=== PATIENT | female | born 1960 | race African-American/Black ===

== ENCOUNTER 2016-05-28 05:16 | Day surgery (SDC) | payer MEDICAID ==
[2016-05-23 10:40] LABS: ABSOLUTE EOSINOPHILS # (AUTO) 0.1 10^3/uL (0.0-0.6); ABSOLUTE MONOCYTES (AUTO) 0.7 10^3/uL (0.1-1.4); ABSOLUTE NEUT (AUTO) 4.2 10^3/uL (1.7-8.2); BASOPHILS % (AUTO) 0.7 % (0-2); EOSINOPHILS % (AUTO) 1.5 % (0-6); HEMATOCRIT 40.6 % (36.0-47.0); HGB HCT DIFFERENCE 1.4; MEAN CORPUSCULAR HEMOGLOBIN 35.2 pg (27.0-33.4); MEAN CORPUSCULAR HGB CONC 34.5 g/dL (32.0-36.0); MEAN CORPUSCULAR VOLUME 102 fl (80-97); MONOCYTES % (AUTO) 9.3 % (3-13); RED BLOOD COUNT 3.98 10^6/uL (3.72-5.28); RED CELL DISTRIBUTION WIDTH 13.8 % (11.5-14.0); SEGMENTED NEUTROPHILS % (AUTO) 59.5 % (42-78)
[2016-05-23 10:43] LABS: APPEARANCE,URINE SLIGHTLY-CLOUDY; BILIRUBIN,URINE NEGATIVE (NEGATIVE); GLUCOSE, URINE NEGATIVE (NEGATIVE); KETONES,URINE TRACE mg/dL (NEGATIVE); LEUKOCYTE ESTERASE,URINE MODERATE (NEGATIVE); NITRITE,URINE POSITIVE (NEGATIVE); PROTEIN,URINE NEGATIVE (NEGATIVE); URINE SPECIFIC GRAVITY 1.025
--- NOTE | 2016-05-23 10:55 | EKG REPORT ---
SEVERITY:- NORMAL ECG - SINUS RHYTHM : Confirmed by: Holli Lester 23-May-2016 10:54:24
[2016-05-23 11:05] LABS: ANION GAP 14 (5-19); BLOOD UREA NITROGEN 8 mg/dL (7-20); CALCIUM 9.3 mg/dL (8.4-10.2); CARBON DIOXIDE 22 mmol/L (22-30); CHLORIDE 107 mmol/L (98-107); CREATININE RESULT 0.51 mg/dL (0.52-1.25); GLUCOSE 136 mg/dL (75-110); SODIUM 142.5 mmol/L (137-145)
[~2016-05-28 05:16] MED LIST: CEFAZOLIN 2 GM/D5W RTU 2 GM/50 ML RTUPB IV PRN; LIDOCAINE 0.5% INJ-PF (5 MG/ML) 50 ML SDV IV PRN; RINGERS SOLUTION,LACTATED 1,000 ML IV PRN
[2016-05-28] MEDS ORDERED: ALBUTEROL SULFATE 0.083% NEB 2.5 MG/3 ML AMPUL NEB ONE ×2 (06:48→07:00)
[2016-05-28] MEDS ORDERED: METOCLOPRAMIDE HCL INJ/PF 10 MG/2 ML SDV ONE (07:54)
[2016-05-28] MEDS ORDERED: FAMOTIDINE INJ/PF 20 MG/2 ML SDV IV ONE ×2 (07:54→08:30)
[2016-05-28] MEDS ORDERED: CEFTRIAXONE 2 GM/D5W RTU 2 GM/50 ML RTUPB IV ONE (08:00)
[2016-05-28] MEDS ORDERED: METOCLOPRAMIDE HCL INJ/PF 10 MG/2 ML SDV IV ONE (08:30)
[2016-05-28] MEDS ORDERED: MIDAZOLAM 2 MG/2 ML INJ ONE (09:37)
[2016-05-28] MEDS ORDERED: FENTANYL CITRATE INJ/PF 100 MCG/2 ML AMPUL ONE (09:38)
[2016-05-28] MEDS ORDERED: PROPOFOL INJ 200 MG/20 ML VIAL IV ONE (09:38)
[2016-05-28] MEDS ORDERED: BUPIVACAINE HCL 0.5 % INJ/PF 30 ML SDV ONE (09:46)
[2016-05-28] MEDS ORDERED: LIDOCAINE 1%/EPINEPHRINE INJ 20 ML VIAL ONE ×2 (09:46→10:11)
[2016-05-28] MEDS ORDERED: OXYCODONE-ACETAMINOPHEN 5-325 MG TABLET PO PRN ×2 (10:05)
[2016-05-28] MEDS ORDERED: PROMETHAZINE HCL INJ 25 MG/1 ML VIAL IV PRN ×2 (10:05)
[2016-05-28] MEDS ORDERED: MORPHINE SULFATE 10 MG/ML INJ IV PRN (10:05)
[2016-05-28] MEDS ORDERED: MEPERIDINE HCL/PF INJ 25 MG/1 ML DISP.SYRIN IV PRN (10:05)
[2016-05-28] MEDS ORDERED: DIPHENHYDRAMINE HCL 50 MG/ML VIAL IV PRN (10:05)
[2016-05-28] MEDS ORDERED: FENTANYL CITRATE INJ/PF 100 MCG/2 ML AMPUL IV PRN ×3 (10:05)
--- NOTE | 2016-05-28 10:33 | Operative Report ---
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 Intact medial meniscus. Intact anterior cruciate ligament. Grade 1 chondral malacia lateral compartment. Lateral meniscal tear. Grade 1-2 chondral malacia the patellofemoral compartment OPERATION: Arthroscopic partial lateral meniscectomy SURGEON: MELISSA MORRIS ANESTHESIA: LMAC PROCEDURE: With the patient supine on the operating table left lower extremity is prepped and draped in a sterile fashion. The knee is insufflated with comminution Marcaine, Xylocaine, and epinephrine. Subsequent medial lateral patella portals are graded introduction ER scope and debridements instrumentation. Joint is examined in a systematic fashion findings as above. Using comminution of basket Hernandez, mechanical shaver, left or frequency ablation probe a partial lateral meniscectomy is performed from approximately 12:00 to 5:00 on the face of the dial. This extends back out to the outer third of the meniscus body throughout this arc. The systematic fashion with no new findings. Instrumentation is removed. The portals closed with the nylon. A sterile compressive dressing was applied. Patient's returned to PACU in satisfactory condition.
[2016-05-28] MEDS ORDERED: ONDANSETRON 4 MG TAB.RAPDIS SL PRN (11:00)
[2016-05-28] MEDS ORDERED: OXYCODONE HCL IR 5 MG TABLET PO PRN (11:00)
[2016-05-28] MEDS ORDERED: LIDOCAINE 2% INJ-PF (20 MG/ML) 10 ML AMPUL ONE (11:01)
[2016-05-28 12:57] VITALS: BP 119/73
== END 2016-05-28 12:30 | disposition home or self-care (01) ==
LOC: OROUT 05:16
PROVIDERS: ATTEND Orthopaedic Surgery
PROC: 0SBD4ZZ Excision of Left Knee Joint, Percutaneous Endoscopic Approach (ICD-10-PCS; principal; 2016-05-28 09:45)
DX: S83.262D Peripheral tear of lateral meniscus, current injury, left knee, subsequent encounter (principal); X58.XXXD Exposure to other specified factors, subsequent encounter; M25.562 Pain in left knee; J44.9 Chronic obstructive pulmonary disease, unspecified; I10 Essential (primary) hypertension; E78.5 Hyperlipidemia, unspecified; R73.03 Prediabetes; M10.9 Gout, unspecified; Z87.891 Personal history of nicotine dependence; Z79.899 Other long term (current) drug therapy
CPT/HCPCS: 93005; 36415; 82962; 85025; 81025; 80048; 81001; 71020; 93010; 29881; J2250; J3010; J3490 ×2; J2765; J2704; S0028; J0696; 1400; J0690

== ENCOUNTER → 2016-09-26 | Outpatient (CLI) | payer MEDICAID ==
--- NOTE | 2016-09-26 14:15 | RADIOLOGY REPORT (SQ) ---
EXAM DESCRIPTION: FOOT RIGHT COMPLETE COMPLETED DATE/TIME: 09/26/2016 2:02 pm REASON FOR STUDY: HALLUX RIGIDUS, RIGHT FOOT M20.21 HALLUX RIGIDUS, RIGHT FOOT COMPARISON: None. NUMBER OF VIEWS: Three views. TECHNIQUE: AP, lateral and oblique standing radiographic images acquired of the right foot. LIMITATIONS: None. FINDINGS: MINERALIZATION: Normal. BONES: No acute fracture or dislocation. No worrisome bone lesions. JOINTS: Degenerative joint changes are present at the 1st metatarsal-phalangeal joint. SOFT TISSUES: No soft tissue swelling. No foreign body. OTHER: No other significant finding. IMPRESSION: Degenerative joint disease at the 1st metatarsal-phalangeal joint. TECHNICAL DOCUMENTATION: JOB ID: [id number] [employer]- All Rights Reserved
== END ==
LOC: RAD 13:22
PROVIDERS: ATTEND Podiatrist Foot & Ankle Surgery
DX: M20.21 Hallux rigidus, right foot (principal)

== ENCOUNTER → 2016-10-13 | Outpatient (CLI) | payer MEDICAID ==
[2016-10-15 00:36] LABS: HEPATITIS C QUANTITATION HCV Not Detected IU/mL (.)
== END ==
LOC: LAB 09:27
PROVIDERS: ATTEND Internal Medicine
DX: B18.2 Chronic viral hepatitis C (principal)
CPT/HCPCS: 36415; 87522

== ENCOUNTER → 2016-10-29 | Outpatient (CLI) | payer MEDICAID | LOC: SP 09:20 | PROVIDERS: ATTEND Podiatrist Foot & Ankle Surgery | DX: I73.9 Peripheral vascular disease, unspecified (principal) | CPT/HCPCS: 93925 ==

== ENCOUNTER → 2017-12-08 | Outpatient (CLI) | payer MEDICAID ==
--- NOTE | 2017-12-08 13:17 | RADIOLOGY REPORT (SQ) ---
EXAM DESCRIPTION: FOOT RIGHT COMPLETE COMPLETED DATE/TIME: 12/08/2017 12:36 pm REASON FOR STUDY: HALLUX LIMITUS M20.21 HALLUX RIGIDUS, RIGHT FOOT COMPARISON: None. NUMBER OF VIEWS: Three views. TECHNIQUE: AP, lateral and oblique radiographic images acquired of the right foot. Weightbearing images were acquired LIMITATIONS: None. FINDINGS: MINERALIZATION: Normal. BONES: No acute fracture or dislocation. No worrisome bone lesions. JOINTS: No effusions. Osteoarthritis with joint space narrowing and bony spurring at the 1st metatar sophalangeal joint without bone formation SOFT TISSUES: No soft tissue swelling. No foreign body. OTHER: There is flattening of the plantar arch. Moderate-sized plantar and dorsal calcaneal spurs. IMPRESSION: NEGATIVE STUDY OF THE RIGHT FOOT. NO RADIOGRAPHIC EVIDENCE OF ACUTE INJURY. TECHNICAL DOCUMENTATION: JOB ID: [id number] [email or web address]- All Rights Reserved Reading location - IP/workstation name: [email or web address]
== END ==
LOC: OD 12:18
PROVIDERS: ATTEND Podiatrist Foot & Ankle Surgery
DX: M20.21 Hallux rigidus, right foot (principal)

== ENCOUNTER → 2018-01-13 | Outpatient (CLI) | payer MEDICAID ==
--- NOTE | 2018-01-13 09:06 | WOMENS IMAGING REPORT ---
EXAM DESCRIPTION: 3D SCREENING MAMMO BILAT COMPLETED DATE/TIME: 01/13/2018 8:46 am REASON FOR STUDY: SCREENING MAMMO Z12.31 ENCNTR SCREEN MAMMOGRAM FOR MALIGNANT NEOPLASM OF ROSEANNE COMPARISON: Multiple since 2012 TECHNIQUE: Standard craniocaudal and mediolateral oblique views of each breast recorded using digita l acquisition and breast tomosynthesis. LIMITATIONS: None. FINDINGS: No masses, calcifications or architectural distortion. No areas of suspicion. Read with the assistance of CAD. .[facility] - R2 Cenova Version 1.3 .[facility] - R2 Cenova Version 1.3 .[facility] - R2 Cenova Version 2.4 .[facility] [place] R2 Cenova Version 2.4 .[facility] - R2 Steam Plant Operator Version 9.2 IMPRESSION: NORMAL MAMMOGRAM. BIRADS 1. BREAST DENSITY: c. The breasts are heterogeneously dense, which may obscure small masses. BIRAD: 1 NEGATIVE RECOMMENDATION: ROUTINE SCREENING Please continue bilateral screening mammography/tomosynthesis in December 2018 COMMENT: The patient has been notified of the results by letter per SA requirements. Additional no tification policies are in place for contacting patient with suspicious or incomplete findings. Quality ID #225: The [employer] recommends an annual screening mammogram for women aged 40 years or over. This facility utilizes a reminder system to ensure that all patients receive reminder letters, and/or direct phone calls for appointments. This includes reminders for routine scr eening mammograms, diagnostic mammograms, or other Breast Imaging Interventions when appropriate. Th is patient will be placed in the appropriate reminder system. The [employer] (ACR) has developed recommendations for screening MRI of the breast s in certain patient populations, to be used in conjunction with mammography. Breast MRI surveillanc e may be appropriate for women with more than 20% lifetime risk of developing breast cancer as deter mined by genetic testing, significant family history of the disease, or history of mantle radiation f or Hodgkins Disease. ACR Practice Guidelines 2008. DBT Technology DBT is a type of tomographic mammography. With conventional mammography, overlapping breast tissue ma y make lesions difficult to detect, even with good compression. DBT uses an x-ray tube that rotates a round the breast, taking images at different angles. These images are then combined to create thin sl ices of the breast that the radiologist can view as a 3D reconstruction. The Flynn unit can perform full-field digital mammograms (2D imaging); or DBT (3D imaging); or both, in a combination mode that quickly performs both the mammogram and the tomosynthesis scan while the breast is still compressed. PQRS 6045F: Fluoroscopic imaging is not utilized for breast tomosynthesis. TECHNICAL DOCUMENTATION: FINDING NUMBER: (1) ASSESSMENT: (1) JOB ID: [id number] [employer]- All Rights Reserved Reading location - IP/workstation name: [email or web address]
== END ==
LOC: WI 08:12
PROVIDERS: ATTEND Internal Medicine
DX: Z12.31 Encounter for screening mammogram for malignant neoplasm of breast (principal)
CPT/HCPCS: 77063; 77067

== ENCOUNTER → 2019-01-18 | Outpatient (CLI) | payer MEDICARE, MEDICAID ==
--- NOTE | 2019-01-18 13:10 | WOMENS IMAGING REPORT ---
EXAM DESCRIPTION: 3D SCREENING MAMMO BILAT COMPLETED DATE/TIME: 01/18/2019 11:06 am REASON FOR STUDY: Z12.31 SCREENING MAMMO Z12.31 ENCNTR SCREEN MAMMOGRAM FOR MALIGNANT NEOPLASM OF B RE COMPARISON: [id number] EXAM PARAMETERS: Views: Standard craniocaudal and mediolateral oblique views of each breast recorded using digital acquisition and breast tomosynthesis. Read with the assistance of CAD. .[facility] - [employer] Development Manager Version 9.2 LIMITATIONS: None. FINDINGS: No suspicious masses, suspicious calcifications or architectural distortion. No areas of c oncern. IMPRESSION: NEGATIVE MAMMOGRAM. BIRADS 1. BREAST DENSITY: b. There are scattered areas of fibroglandular density. BIRAD: ASSESSMENT: 1 NEGATIVE RECOMMENDATION: ROUTINE SCREENING COMMENT: The patient has been notified of the results by letter per MQSA requirements. Additional no tification policies are in place for contacting patient with suspicious or incomplete findings. Quality ID #225: The [employer] recommends an annual screening mammogram for women aged 40 years or over. This facility utilizes a reminder system to ensure that all patients receive reminder letters, and/or direct phone calls for appointments. This includes reminders for routine scr eening mammograms, diagnostic mammograms, or other Breast Imaging Interventions when appropriate. Th is patient will be placed in the appropriate reminder system. TECHNICAL DOCUMENTATION: FINDING NUMBER: (1) ASSESSMENT: (1) JOB ID: [id number] [employer] - how [employer] [place]- All Rights Reserved Reading location - IP/workstation name: [email or web address]
== END ==
LOC: WI 10:20
PROVIDERS: ATTEND Internal Medicine
DX: Z12.31 Encounter for screening mammogram for malignant neoplasm of breast (principal)
CPT/HCPCS: 77063; 77067

== ENCOUNTER 2019-04-13 04:10 | Inpatient (IN) | payer MEDICARE, MEDICAID ==
--- NOTE | 2019-04-13 04:30 | ER Document Report ---
ED Fall - General Stated Complaint: FALL/HIP PAIN Time Seen by Provider: 04/13/19 04:23 Notes: Patient is a 58-year-old female that comes by EMS for chief complaint of a witnessed fall. She states she was ambulating over to her neighbor's house tonight and she stepped in a pothole, this caused her to twist her leg and fall. She has reported pain in her left knee and left hip. She denies fall injury, head injury, or any other locations of pain. Per EMS the witness stated that she did not have any other injuries other than to her right hip and knee. Patient admits to drinking "2 coolers" of beer tonight. Patient is not reportedly on a blood thinner. Patient does report that she has had left hip replacement more than once. TRAVEL OUTSIDE OF THE [place] IN LAST 30 DAYS: No - Related data Allergies/Adverse Reactions: No Known Allergies Allergy (Verified 05/22/16 13:04) Past Medical History - General Information source: Patient - Social History Smoking Status: Former Smoker Frequency of alcohol use: Social Drug Abuse: None Lives with: Alone Family History: Reviewed & Not Pertinent - Past Medical History Cardiac Medical History: Reports: Hx Hypertension Denies: Hx Coronary Artery Disease, Hx Heart Attack Pulmonary Medical History: Reports: Hx Asthma Denies: Hx Bronchitis, Hx COPD, Hx Pneumonia Neurological Medical History: Denies: Hx Cerebrovascular Accident, Hx Seizures Musculoskeletal Medical History: Reports Hx Arthritis Traumatic Medical History: Reports: Hx Fractures - LEFT hip 1987 Past Surgical History: Reports: Hx Appendectomy, Hx Tonsillectomy - Immunizations Hx Diphtheria, Pertussis, Tetanus Vaccination: Yes Hx Pneumococcal Vaccination: 12/22/12 Review of Systems - Review of Systems Constitutional: No symptoms reported EENT: No symptoms reported Cardiovascular: No symptoms reported Respiratory: No symptoms reported Gastrointestinal: No symptoms reported Genitourinary: No symptoms reported Female Genitourinary: No symptoms reported Musculoskeletal: See HPI Skin: No symptoms reported Hematologic/Lymphatic: No symptoms reported Neurological/Psychological: No symptoms reported Physical Exam - Vital signs Vitals: Resp Pulse Ox 19 96 04/13/19 04:23 04/13/19 04:23 - Notes Notes: GENERAL: Patient alert, cooperative, occasionally slurring words, appears mildly intoxicated. Intermittently appears to be in pain HEAD: Normocephalic, atraumatic. EYES: Pupils equal, round, and reactive to light. Extraocular movements intact. ENT: Oral mucosa moist, tongue midline. Oropharynx unremarkable. Airway patent. Nares patent, no nasal septal hematoma, TM's intact. NECK: Full range of motion. Supple. Trachea midline. LUNGS: Clear to auscultation bilaterally, no wheezes, rales, or rhonchi. No respiratory distress. No signs of trauma HEART: Regular rate and rhythm. No murmur ABDOMEN: Soft, non-tender. Non-distended. Bowel sounds present in all 4 quadrants. No signs of trauma GENITOURINARY: Deferred EXTREMITIES: Patient is very tender starting at the superior aspect of the left knee extending up towards the left hip. No open wounds, no overt deformity but there does appear to be some swelling. Patient occasionally bends the knee. Normal distal neurovascular exam, strong dorsalis pedis pulse. Unremarkable extremities otherwise. BACK: no cervical, thoracic, lumbar midline tenderness. No saddle anesthesia, normal distal neurovascular exam. Moves all extremities in full range of motion. NEUROLOGICAL: Alert and oriented x3. Occasionally mild slurred speech. Cranial nerves II through XII grossly intact. PSYCH: Intermittently friendly and agitated SKIN: Warm, dry, normal turgor. No rashes or lesions noted. Course - Re-evaluation Re-evalutation: Patient denies any other injuries other than her left leg. There does not appear to be any other injured areas, no signs of head injury or reported head injury by the witness per EMS. Vital signs unremarkable. X-ray of the left knee, femur, hip shows normal hip but obvious large mildly displaced spiral fracture of the mid to distal left femur. Patient has strong distal pulses and sensation is normal. No other signs of trauma. Patient was discussed with Dr. Rivera. Called and spoke with Dr. Purvis, he will accept patient to his service. Patient will not be placed in traction but she will be placed in a modified long-leg posterior splint. Preop has been initiated, Tong placed. CBC, chemistry nonspecific with mildly elevated LFTs. Alcohol level is greater than 230. - Vital Signs Vital signs: Temp Pulse Resp BP Pulse Ox 97.6 F 18 127/78 H 92 04/13/19 06:10 04/13/19 05:51 04/13/19 05:27 04/13/19 05:51 - Laboratory Result Diagrams: 04/13/19 05:30 04/13/19 05:30 Laboratory results interpreted by me: 04/13/19 04/13/19 05:30 05:30 MCV 101 H MCH 34.1 H Plt Count 145 L Chloride 109 H Creatinine 0.50 L Glucose 141 H AST 81 H ALT 65 H - EKG Interpretation by Me Additional EKG results interpreted by me: EKG shows sinus rhythm at a rate of 76, QTC of 446, normal axis. No T wave inversions or ST segment changes in consecutive leads. Procedures - Immobilization left leg Pre-Proc Neuro Vasc Exam: Normal Immobilizer type: Long leg posterior - modified to the side instead of the posterior Performed by: PCT Post-Proc Neuro Vasc Exam: Normal Alignment checked and good: Yes Discharge - Discharge Clinical Impression: Left femoral shaft fracture Qualifiers: Encounter type: initial encounter Fracture type: closed Fracture morphology: spiral Fracture alignment: displaced Qualified Code(s): S72.342A - Displaced spiral fracture of shaft of left femur, initial encounter for closed fracture Fall Qualifiers: Encounter type: initial encounter Qualified Code(s): W19.XXXA - Unspecified fall, initial encounter Alcohol intoxication Qualifiers: Complication of substance-induced condition: with unspecified complication Qualified Code(s): F10.929 - Alcohol use, unspecified with intoxication, un specified Condition: Stable Disposition: ADMITTED INPATIENT Admitting Provider: Dr. Purvis Unit Admitted: Surgical Floor
[2019-04-13] MEDS ORDERED: MORPHINE SULFATE 10 MG/ML INJ IV ONE (05:20)
[2019-04-13] MEDS ORDERED: ONDANSETRON HCL INJ/PF 4 MG/2 ML SDV IV ONE (05:20)
[2019-04-13 05:53] LABS: ABSOLUTE BASOPHILS # (AUTO) 0.1 10^3/uL (0.0-0.2); ABSOLUTE EOSINOPHILS # (AUTO) 0.1 10^3/uL (0.0-0.6); ABSOLUTE LYMPHOCYTES (AUTO) 3.1 10^3/uL (0.5-4.7); ABSOLUTE MONOCYTES (AUTO) 0.6 10^3/uL (0.1-1.4); ABSOLUTE NEUT (AUTO) 5.8 10^3/uL (1.7-8.2); EOSINOPHILS % (AUTO) 0.9 % (0-6); HEMATOCRIT 40.2 % (36.0-47.0); HEMOGLOBIN 13.6 g/dL (12.0-15.5); LYMPHOCYTES % (AUTO) 32.1 % (13-45); MEAN CORPUSCULAR HEMOGLOBIN 34.1 pg (27.0-33.4); MEAN CORPUSCULAR HGB CONC 33.8 g/dL (32.0-36.0); MEAN CORPUSCULAR VOLUME 101 fl (80-97); MONOCYTES % (AUTO) 6.2 % (3-13); PLATELET COUNT 145 10^3/uL (150-450); RED BLOOD COUNT 3.99 10^6/uL (3.72-5.28); SEGMENTED NEUTROPHILS % (AUTO) 59.8 % (42-78); TOTAL CELLS COUNTED % (AUTO) 100 %; WHITE BLOOD COUNT 9.7 10^3/uL (4.0-10.5)
--- NOTE | 2019-04-13 05:53 | RADIOLOGY REPORT (SQ) ---
AP view of the pelvis: 04/13/2019 4:51 AM [facility] COMPARISON: None available CLINICAL INDICATION: 58-year-old patient with pelvic pain. FINDINGS: The sacroiliac joints appear unremarkable. Both hip joints demonstrate no evidence of an acute fracture. There are no findings to suggest an acute fracture. The visualized soft tissues appear grossly unremarkable. There are changes of a left hip arthroplasty. There is a cannulated screw extending across the left iliac vein. Multilevel degenerative changes are seen within the lumbar spine. Tubal ligation clips are seen within the lower pelvis. IMPRESSION: There are no findings to suggest an acute fracture within the pelvis.
--- NOTE | 2019-04-13 05:54 | RADIOLOGY REPORT (SQ) ---
Right knee radiographs: 04/13/2019 4:52 AM ELECTRICITY TRADING ANALYST HISTORY: 58-year-old patient with right knee pain . TECHNIQUE: Oblique image of the right knee was obtained. COMPARISON: None available FINDINGS: There is an acute, spiral fracture through the distal left femur. This extends to the supracondylar region. The fracture is mildly displaced with the distal fracture fragment noted more medially. IMPRESSION: There is an acute, spiral fracture through the distal left femur extending to the femoral condyles.
--- NOTE | 2019-04-13 05:55 | RADIOLOGY REPORT (SQ) ---
Left femur radiographs: 04/13/2019 4:53 AM SOFTWARE DEVELOPMENT SPECIALIST TECHNIQUE: AP and lateral images of the left femur were obtained. COMPARISON: None available HISTORY: 58-year-old patient with history of left femur pain . FINDINGS: There is a acute fracture through the mid to distal diaphysis of the left femur which has a spiral component. This extensive the supracondylar region. There is mild posterior medial displacement the distal fracture fragment. The proximal left femur demonstrates no gross fracture. There are changes of a left hip arthroplasty. IMPRESSION: There is an acute fracture involving the mid to distal left femur.
[2019-04-13 06:38] LABS: ALBUMIN 4.2 g/dL (3.5-5.0); ALCOHOL 232 mg/dL (NONE DETECTED); ALKALINE PHOSPHATASE 68 U/L (38-126); ANION GAP 10 (5-19); ASPARTATE AMINO TRANSFERASE 81 U/L (14-36); BILIRUBIN,DIRECT 0.2 mg/dL (0.0-0.4); BILIRUBIN,TOTAL 0.4 mg/dL (0.2-1.3); BLOOD UREA NITROGEN 14 mg/dL (7-20); CALCIUM 8.6 mg/dL (8.4-10.2); CARBON DIOXIDE 23 mmol/L (22-30); CHLORIDE 109 mmol/L (98-107); GLUCOSE 141 mg/dL (75-110); POTASSIUM 4.2 mmol/L (3.6-5.0); TOTAL PROTEIN 7.4 g/dL (6.3-8.2)
--- NOTE | 2019-04-13 06:45 | RADIOLOGY REPORT (SQ) ---
EXAM DESCRIPTION: XR CHEST 1 VIEW COMPLETED DATE/TME: 04/13/2019 05:18 CLINICAL HISTORY: 58 years, Female, pre-op COMPARISON: None. NUMBER OF VIEWS: 1 TECHNIQUE: Portable chest LIMITATIONS: None. FINDINGS: Heart size at the upper limits of normal. Lungs are clear. No pneumothorax IMPRESSION: No acute cardiopulmonary process copyright 2010 [employer]- All Rights Reserved
--- NOTE | 2019-04-13 07:16 | PDOC H&P ---
History of Present Illness Admission Date/PCP: 04/13/19 06:37 RAUL BEASLEY MD History of Present Illness: ROXI LIMON is a 58 year old female The patient is a 58-year-old white female known to me from previous orthopedic surgery. In the distant past she sustained a left acetabular fracture and a left femur fracture. 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 This was uneventful. She had return to full activity level and last night stumbled, fell, and sustained a spiral fracture through the mid and distal thirds of the femur. She was brought to the emergency room and orthopedics was consulted for fracture management. Past Medical History Cardiac Medical History: Reports: Hypertension Denies: Coronary Artery Disease, Myocardial Infarction Pulmonary Medical History: Reports: Asthma Denies: Bronchitis, Chronic Obstructive Pulmonary Disease (COPD), Pneumonia Neurological Medical History: Denies: Seizures Musculoskeltal Medical History: Reports: Arthritis Hematology: Reports: Anemia Past Surgical History Past Surgical History: Reports: Appendectomy, Orthopedic Surgery - ORIF left acetabulum, left total hip arthroplasty, Tonsillectomy Social History Information Source: Patient, [facility] Office, [facility] Records Lives with: Alone Smoking Status: Former Smoker Family History Family History: Reviewed & Not Pertinent Parental Family History Reviewed: No Children Family History Reviewed: No Sibling(s) Family History Reviewed.: No Medication/Allergy Home Medications: Calcium Carbonate/Vitamin D3 [Calcium 600 + Vit D 200 Tablet] 1 tab PO DAILY 12/16/12 Diphenhydramine HCl [Benadryl] 25 mg PO Q6H PRN 12/16/12 Amlodipine Besylate 1 tab PO BID 05/23/16 Aspirin [Aspirin 325 mg Tablet] 1 tab PO BID 05/23/16 Budesonide/Formoterol Fumarate [Symbicort HFA 80-4.5 mcg Inhaler 6.9 gm] 1 puff PO DAILY 05/23/16 Ibuprofen 1 tab PO TID PRN 05/23/16 Allergies/Adverse Reactions: No Known Allergies Allergy (Verified 05/22/16 13:04) Review of Systems All systems: as per H Physical Exam Vital Signs: Temp Pulse Resp BP Pulse Ox 36.4 C 17 104/77 94 04/13/19 06:10 04/13/19 07:00 04/13/19 06:42 04/13/19 07:00 Intake & Output 04/12/19 04/13/19 04/14/19 06:59 06:59 06:59 Weight 105.959 kg General appearance: PRESENT: mild distress, obese, severe distress Head exam: PRESENT: normocephalic Respiratory exam: PRESENT: unlabored Cardiovascular exam: PRESENT: RRR Pulses: PRESENT: +1 pedal pulses bilateral Vascular exam: PRESENT: normal capillary refill GI/Abdominal exam: PRESENT: soft Rectal exam: PRESENT: deferred Extremities exam: PRESENT: other - Right lower extremity shortened. Distal neurovascular semination is intact. Neurological exam: PRESENT: alert, awake, oriented to person, oriented to place, oriented to time, oriented to situation. ABSENT: motor sensory deficit Psychiatric exam: PRESENT: appropriate affect, normal mood. ABSENT: homicidal ideation, suicidal ideation Skin exam: PRESENT: dry, intact, warm. ABSENT: cyanosis, rash Results Laboratory Results: 04/13/19 05:30 04/13/19 05:30 04/13/19 04/13/19 05:30 05:30 WBC 9.7 RBC 3.99 Hgb 13.6 Hct 40.2 MCV 101 H MCH 34.1 H MCHC 33.8 RDW 14.0 Plt Count 145 L Seg Neutrophils % 59.8 Sodium 141.9 Potassium 4.2 Chloride 109 H Carbon Dioxide 23 Anion Gap 10 BUN 14 Creatinine 0.50 L Est GFR ( Amer) > 60 Glucose 141 H Calcium 8.6 Total Bilirubin 0.4 AST 81 H Alkaline Phosphatase 68 Total Protein 7.4 Albumin 4.2 Impressions: Femur X-Ray 04/13/19 00:00 IMPRESSION: There is an acute fracture involving the mid to distal left femur. Pelvis X-Ray 04/13/19 00:00 IMPRESSION: There are no findings to suggest an acute fracture within the pelvis. Knee X-Ray 04/13/19 04:28 IMPRESSION: There is an acute, spiral fracture through the distal left femur extending to the femoral condyles. Chest X-Ray 04/13/19 05:18 IMPRESSION: No acute cardiopulmonary process copyright 2010 [employer]- All Rights Reserved Status: Image reviewed by id - X-rays demonstrate a malunion at the junction of the middle and distal thirds of the femur with a spiral fracture through this that extends down to the femoral condyle. Assessment & Plan - Diagnosis (1) Left femoral shaft fracture Qualifiers: Encounter type: initial encounter Fracture type: closed Fracture morphology: spiral Fracture alignment: displaced Qualified Code(s): S72.342A - Displaced spiral fracture of shaft of left femur, initial encounter for closed fracture Is this a current diagnosis for this admission?: Yes Plan: Patient will undergo adequate preoperative evaluation and then undergo an open reduction internal fixation of the left femur fracture either with a retrograde intramedullary nail or with a sideplate. - Time Time Spent: 50 to 70 Minutes - 5 Anticipated discharge: Home with Homehealth, SNF Within: Other
[2019-04-13 07:48] LABS: APPEARANCE,URINE CLEAR; BILIRUBIN,URINE NEGATIVE (NEGATIVE); COLOR,URINE YELLOW; GLUCOSE, URINE NEGATIVE (NEGATIVE); KETONES,URINE NEGATIVE (NEGATIVE); LEUKOCYTE ESTERASE,URINE NEGATIVE (NEGATIVE); NITRITE,URINE NEGATIVE (NEGATIVE); PROTEIN,URINE NEGATIVE (NEGATIVE); UROBILINOGEN,URINE NEGATIVE mg/dL (<2.0)
[2019-04-13] MEDS: MORPHINE SULFATE 10 MG/ML INJ IV PRN ×3 (08:37→14:45)
[2019-04-13] MEDS ORDERED: MORPHINE SULFATE 10 MG/ML INJ IV PRN (15:25)
[2019-04-13] MEDS ORDERED: ONDANSETRON 4 MG TAB.RAPDIS SL PRN (15:26)
[2019-04-13] MEDS: ENOXAPARIN SODIUM INJ 30 MG/0.3 ML DISP.SYRIN SUBCUT SCH (17:41)
[2019-04-13] MEDS: OXYCODONE HCL IR 5 MG TABLET PO PRN (21:57)
[2019-04-13] MEDS: ZOLPIDEM TARTRATE 5 MG TABLET PO PRN (21:57)
--- NOTE | 2019-04-13 22:31 | EKG REPORT ---
SEVERITY:- NORMAL ECG - SINUS RHYTHM : Confirmed by: Holli Lester 13-Apr-2019 22:31:07
[2019-04-14 06:18] LABS: ANION GAP 7 (5-19); BLOOD UREA NITROGEN 13 mg/dL (7-20); CALCIUM 8.6 mg/dL (8.4-10.2); CARBON DIOXIDE 27 mmol/L (22-30); CHLORIDE 105 mmol/L (98-107); GLUCOSE 105 mg/dL (75-110)
[2019-04-14 06:22] LABS: ABSOLUTE EOSINOPHILS # (AUTO) 0.1 10^3/uL (0.0-0.6); ABSOLUTE LYMPHOCYTES (AUTO) 2.8 10^3/uL (0.5-4.7); ABSOLUTE MONOCYTES (AUTO) 0.8 10^3/uL (0.1-1.4); ABSOLUTE NEUT (AUTO) 6.2 10^3/uL (1.7-8.2); BASOPHILS % (AUTO) 0.4 % (0-2); HEMATOCRIT 35.9 % (36.0-47.0); HEMOGLOBIN 12.5 g/dL (12.0-15.5); LYMPHOCYTES % (AUTO) 28.1 % (13-45); MEAN CORPUSCULAR HEMOGLOBIN 34.3 pg (27.0-33.4); MEAN CORPUSCULAR HGB CONC 34.7 g/dL (32.0-36.0); MEAN CORPUSCULAR VOLUME 99 fl (80-97); PLATELET COUNT 125 10^3/uL (150-450); RED BLOOD COUNT 3.64 10^6/uL (3.72-5.28); RED CELL DISTRIBUTION WIDTH 14.2 % (11.5-14.0); SEGMENTED NEUTROPHILS % (AUTO) 62.5 % (42-78); TOTAL CELLS COUNTED % (AUTO) 100 %
[2019-04-14] MEDS: ENOXAPARIN SODIUM INJ 30 MG/0.3 ML DISP.SYRIN SUBCUT SCH ×2 (06:43→17:19)
--- NOTE | 2019-04-14 06:46 | PDOC PROGRESS REPORT ---
Subjective Progress Note for:: 04/14/19 Reason For Visit: LEFT FEMORAL FRACTURE 58-year-old female status post a previous femur fracture with a malunion, subsequent fall and fracture through the distal third of the femoral shaft. Awaiting ORIF which is scheduled for tomorrow morning. Physical Exam Vital Signs: Temp Pulse Resp BP Pulse Ox 36.7 C 80 19 134/88 H 94 04/14/19 00:00 04/14/19 00:00 04/14/19 00:00 04/14/19 00:00 04/14/19 00:00 Intake & Output 04/12/19 04/13/19 04/14/19 06:59 06:59 06:59 Intake Total 976 Output Total 1280 Balance -304 Weight 105.959 kg General appearance: PRESENT: mild distress, obese Head exam: PRESENT: normocephalic Respiratory exam: PRESENT: unlabored Cardiovascular exam: PRESENT: RRR Pulses: PRESENT: +1 pedal pulses bilateral Vascular exam: PRESENT: normal capillary refill GI/Abdominal exam: PRESENT: soft Rectal exam: PRESENT: deferred Gentrourinary exam: PRESENT: other - Tong in place without any physicians orders that I can identify. Results Laboratory Results: 04/14/19 04:27 04/14/19 04:27 04/13/19 04/14/19 04/14/19 07:20 04:27 04:27 WBC 10.0 RBC 3.64 L Hgb 12.5 Hct 35.9 L MCV 99 H MCH 34.3 H MCHC 34.7 RDW 14.2 H Plt Count 125 L Seg Neutrophils % 62.5 Sodium 138.5 Potassium 4.0 Chloride 105 Carbon Dioxide 27 Anion Gap 7 BUN 13 Creatinine 0.42 L Est GFR ( Amer) > 60 Glucose 105 Calcium 8.6 Urine Color YELLOW Urine Appearance CLEAR Urine pH 5.0 Ur Specific [place] 1.010 Urine Protein NEGATIVE Urine Glucose (UA) NEGATIVE Urine Ketones NEGATIVE Urine Blood NEGATIVE Urine Nitrite NEGATIVE Ur Leukocyte Esterase NEGATIVE Urine WBC (Auto) 0 Urine RBC (Auto) 0 Blood Type Antibody Screen 04/14/19 04:27 WBC RBC Hgb Hct MCV MCH MCHC RDW Plt Count Seg Neutrophils % Sodium Potassium Chloride Carbon Dioxide Anion Gap BUN Creatinine Est GFR ( Amer) Glucose Calcium Urine Color Urine Appearance Urine pH Ur Specific [place] Urine Protein Urine Glucose (UA) Urine Ketones Urine Blood Urine Nitrite Ur Leukocyte Esterase Urine WBC (Auto) Urine RBC (Auto) Blood Type O POSITIVE Antibody Screen NEGATIVE Impressions: Femur X-Ray 04/13/19 00:00 IMPRESSION: There is an acute fracture involving the mid to distal left femur. Pelvis X-Ray 04/13/19 00:00 IMPRESSION: There are no findings to suggest an acute fracture within the pelvis. Knee X-Ray 04/13/19 04:28 IMPRESSION: There is an acute, spiral fracture through the distal left femur extending to the femoral condyles. Chest X-Ray 04/13/19 05:18 IMPRESSION: No acute cardiopulmonary process copyright 2011 [employer]- All Rights Reserved Status: Imported from PACS Assessment & Plan - Diagnosis (1) Left femoral shaft fracture Qualifiers: Encounter type: initial encounter Fracture type: closed Fracture morphology: spiral Fracture alignment: displaced Qualified Code(s): S72.342A - Displaced spiral fracture of shaft of left femur, initial encounter for closed fracture Is this a current diagnosis for this admission?: Yes Plan: Plan for ORIF with a retrograde femoral nail tomorrow. - Time Time Spent with patient: 15-24 minutes Anticipated discharge: Home with Homehealth Within: Other
[2019-04-14 07:08] LABS: INTERNATIONAL RATION (INR) 1.07; PARTIAL THROMBOPLASTIN TIME 31.7 SEC (23.5-35.8); PROTHROMBIN TIME 13.9 SEC (11.4-15.4)
[2019-04-14] MEDS: OXYCODONE HCL IR 5 MG TABLET PO PRN ×2 (12:15→18:15)
[2019-04-14] MEDS: ACETAMINOPHEN 325 MG TABLET PO PRN (23:25)
[2019-04-14] MEDS: ZOLPIDEM TARTRATE 5 MG TABLET PO PRN (23:26)
[2019-04-15] MEDS ORDERED: RINGERS SOLUTION,LACTATED 1,000 ML IV PRN
[2019-04-15] MEDS ORDERED: CEFAZOLIN SODIUM 2 GM in DEXTROSE 5%-WATER 100 ML IV PRN (05:00)
[2019-04-15] MEDS ORDERED: TRANEXAMIC ACID INJ/PF 1,000 MG/10 ML SDV IV PRN (05:00)
[2019-04-15] MEDS: ENOXAPARIN SODIUM INJ 30 MG/0.3 ML DISP.SYRIN SUBCUT SCH ×2 (05:12→18:00)
[2019-04-15] MEDS: OXYCODONE HCL IR 5 MG TABLET PO PRN ×3 (05:13→21:06)
[2019-04-15] MEDS ORDERED: FENTANYL CITRATE INJ/PF 100 MCG/2 ML AMPUL ONE ×2 (07:06→09:12)
[2019-04-15] MEDS ORDERED: MIDAZOLAM 2 MG/2 ML INJ ONE (07:06)
[2019-04-15] MEDS ORDERED: KETOROLAC TROMETHAMINE 60 MG/2 ML SDV ONE (07:06)
[2019-04-15] MEDS ORDERED: KETAMINE HCL INJ 500 MG/10 ML VIAL ONE (07:06)
[2019-04-15] MEDS ORDERED: ONDANSETRON HCL INJ/PF 4 MG/2 ML SDV ONE (07:07)
[2019-04-15] MEDS ORDERED: PROPOFOL INJ 200 MG/20 ML VIAL IV ONE (07:07)
[2019-04-15] MEDS ORDERED: LIDOCAINE 2% INJ-PF (20 MG/ML) 10 ML AMPUL ONE (07:08)
[2019-04-15] MEDS ORDERED: EPHEDRINE SULFATE INJ 50 MG/1 ML AMPULE ONE (07:18)
[2019-04-15] MEDS ORDERED: TRANEXAMIC ACID INJ/PF 1,000 MG/10 ML SDV ONE ×2 (07:29→09:40)
[2019-04-15] MEDS ORDERED: CEFAZOLIN INJ 1 GM VIAL ONE (07:29)
[2019-04-15] MEDS ORDERED: BUPIVACAINE HCL 0.5%-EPI 1:200000 INJ/PF 30 ML VIAL ONE (08:38)
--- NOTE | 2019-04-15 09:02 | Operative Report ---
Operative Report DATE OF SURGERY: 04/15/19 PREOPERATIVE DIAGNOSIS: Left distal third femur fracture OPERATION: Open reduction internal fixation left distal third femur fracture SURGEON: MELISSA MORRIS ANESTHESIA: GA ESTIMATED BLOOD LOSS: 150 PROCEDURE: Implants used: [place] titanium retrograde femoral nail 11 mm x 280 mm 40 mm proximal interlock, 85, 75, 75 mm distal interlocks With the patient supine on the Josemanuel table the left lower extremities prepped and draped in a sterile fashion. The limb is elevated for exsanguination tourniquet inflated 280 torr. A longitudinal incision was made over the medial aspect of the patellar tendon and sharp dissection was used to carry the incision into the joint. A pin is then placed across the articular surface up into the distal metadiaphysis of the femur. This is removed after a cortical reamer is used to fashion a cortical opening. A ball-tipped guide mark is then advanced through the knee joint up into the femur across the fracture site. The femoral canal was then prepared using flexible reamers until a 12 mm reamer is seated. The flexible reamers were removed and a Franky retrograde femoral nail was advanced over the ball-tipped guide mark to a depth that allows approximately 1 inch of separation between the proximal aspect of the nail and the existing femoral stem. It secured distally with 3 interlocks and proximally with one interlock. At this point the tourniquet is deflated. The wound is irrigated with bulb lavage containing normal saline and Betadine. Hemostasis obtained with electrocautery. The wound is then closed in layers using opted Vicryl followed by ravi. Sterile dressings are applied and the patient is returned to the PACU in satisfactory condition.
[2019-04-15] MEDS ORDERED: MORPHINE SULFATE 10 MG/ML INJ IV PRN (09:06)
[2019-04-15] MEDS ORDERED: ONDANSETRON HCL INJ/PF 4 MG/2 ML SDV IV PRN (09:06)
[2019-04-15] MEDS ORDERED: OXYCODONE-ACETAMINOPHEN 5-325 MG TABLET PO PRN ×2 (09:06)
[2019-04-15] MEDS ORDERED: PROMETHAZINE HCL INJ 25 MG/1 ML VIAL IV PRN ×2 (09:06)
[2019-04-15] MEDS ORDERED: DIPHENHYDRAMINE HCL 50 MG/ML VIAL IV PRN (09:06)
[2019-04-15] MEDS ORDERED: MEPERIDINE HCL/PF INJ 25 MG/1 ML DISP.SYRIN IV PRN (09:06)
[2019-04-15] MEDS ORDERED: FENTANYL CITRATE INJ/PF 100 MCG/2 ML AMPUL IV PRN ×3 (09:06)
[2019-04-15] MEDS: MORPHINE SULFATE 10 MG/ML INJ IV SCH ×4 (10:20→17:03)
--- NOTE | 2019-04-15 11:28 | RADIOLOGY REPORT (SQ) ---
EXAM DESCRIPTION: NO CHG FLUORO; FEMUR LEFT COMPLETED DATE/TIME: 04/15/2019 11:09 am REASON FOR STUDY: ORIF LEFT FEMUR ASSISTED WITH FLUORO IN OR COMPARISON: None. FLUOROSCOPY TIME: 2.1 minutes 12 Images saved to PACS LIMITATIONS: None. PROCEDURE: ORIF left femur FINDINGS: Images from fluoro document placement of a long medullary mark in the femur. 3 long cannul ated screws are present distally. IMPRESSION: ORIF left femur. Refer to operative note for further information. COMMENT: PQRS 6045F: Fluoroscopy time of the procedure is documented in the report. TECHNICAL DOCUMENTATION: JOB ID: [id number] 2010 [employer]- All Rights Reserved Reading location - IP/workstation name: [email or web address]
--- NOTE | 2019-04-15 11:28 | RADIOLOGY REPORT (SQ) ---
EXAM DESCRIPTION: NO CHG FLUORO; FEMUR LEFT COMPLETED DATE/TIME: 04/15/2019 11:09 am REASON FOR STUDY: ORIF LEFT FEMUR ASSISTED WITH FLUORO IN OR COMPARISON: None. FLUOROSCOPY TIME: 2.1 minutes 12 Images saved to PACS LIMITATIONS: None. PROCEDURE: ORIF left femur FINDINGS: Images from fluoro document placement of a long medullary mark in the femur. 3 long cannul ated screws are present distally. IMPRESSION: ORIF left femur. Refer to operative note for further information. COMMENT: PQRS 6045F: Fluoroscopy time of the procedure is documented in the report. TECHNICAL DOCUMENTATION: JOB ID: [id number] 2010 [employer]- All Rights Reserved Reading location - IP/workstation name: [email or web address]
[2019-04-15] MEDS ORDERED: GLYCOPYRROLATE 1 MG/5 ML VIAL ONE (13:57)
[2019-04-15] MEDS ORDERED: ROCURONIUM BROMIDE INJ 50 MG/5 ML VIAL IV ONE (13:57)
[2019-04-15] MEDS ORDERED: SUCCINYLCHOLINE CHLORIDE INJ 200 MG/10 ML VIAL ONE (13:57)
[2019-04-15] MEDS ORDERED: PHENYLEPHRINE HCL INJ/PF 10 MG/1 ML SDV ONE (13:57)
[2019-04-15] MEDS ORDERED: NEOSTIGMINE METHYLSULFATE 10 MG/10 ML VIAL ONE (13:57)
[2019-04-15] MEDS: ASPIRIN 81 MG TABLET, ENT COATED PO SCH (14:19)
[2019-04-15] MEDS: CEFAZOLIN SODIUM 2 GM in DEXTROSE 5%-WATER 100 ML IV SCH ×2 (14:20→21:06)
[2019-04-16] MEDS: ACETAMINOPHEN 325 MG TABLET PO PRN
[2019-04-16] MEDS: MORPHINE SULFATE 10 MG/ML INJ IV PRN ×2 (00:08→07:40)
[2019-04-16] MEDS: OXYCODONE HCL IR 5 MG TABLET PO PRN ×4 (03:46→23:26)
[2019-04-16] MEDS: ENOXAPARIN SODIUM INJ 30 MG/0.3 ML DISP.SYRIN SUBCUT SCH ×2 (05:12→17:42)
--- NOTE | 2019-04-16 08:10 | PDOC PROGRESS REPORT ---
Subjective Progress Note for:: 04/16/19 Reason For Visit: LEFT FEMORAL FRACTURE 58-year-old female now postop day 1 status post ORIF of a left distal femur fracture. Uneventful is overnight. Physical Exam Vital Signs: Temp Pulse Resp BP Pulse Ox 37.2 C 109 H 18 125/67 94 04/16/19 04:12 04/16/19 04:12 04/16/19 04:12 04/16/19 04:12 04/16/19 04:12 Intake & Output 04/15/19 04/16/19 04/17/19 06:59 06:59 06:59 Intake Total 1397 2690 Output Total 1180 1305 Balance 217 1385 Weight 102.5 kg 108.1 kg General appearance: PRESENT: no acute distress Head exam: PRESENT: normocephalic Respiratory exam: PRESENT: unlabored Cardiovascular exam: PRESENT: RRR Pulses: PRESENT: +1 pedal pulses bilateral Vascular exam: PRESENT: normal capillary refill GI/Abdominal exam: PRESENT: soft Rectal exam: PRESENT: deferred Extremities exam: PRESENT: other - Impressive dressing on the left lower extremi ties clean dry and intact. Distal neurovascular examination is intact. Results Laboratory Results: 04/14/19 04:27 04/14/19 04:27 Impressions: Pelvis X-Ray 04/13/19 00:00 IMPRESSION: There are no findings to suggest an acute fracture within the pelvis. Knee X-Ray 04/13/19 04:28 IMPRESSION: There is an acute, spiral fracture through the distal left femur extending to the femoral condyles. Chest X-Ray 04/13/19 05:18 IMPRESSION: No acute cardiopulmonary process copyright 2011 [employer]- All Rights Reserved Femur X-Ray 04/15/19 00:00 IMPRESSION: ORIF left femur. Refer to operative note for further information. Fluoroscopy 04/15/19 00:00 IMPRESSION: ORIF left femur. Refer to operative note for further information. Status: Imported from PACS Assessment & Plan - Diagnosis (1) Left femoral shaft fracture Qualifiers: Encounter type: initial encounter Fracture type: closed Fracture morphology: spiral Fracture alignment: displaced Qualified Code(s): S72.342A - Displaced spiral fracture of shaft of left femur, initial encounter for closed fracture Is this a current diagnosis for this admission?: Yes Plan: Mobilized with physical therapy and a touchdown weightbearing restriction. Anticipate discharge home with home health services and DME. - Time Time Spent with patient: 15-24 minutes Anticipated discharge: Home with Homehealth Within: Other
[2019-04-16] MEDS: ASPIRIN 81 MG TABLET, ENT COATED PO SCH (09:57)
[2019-04-17] MEDS: ENOXAPARIN SODIUM INJ 30 MG/0.3 ML DISP.SYRIN SUBCUT SCH ×2 (05:15→17:30)
[2019-04-17] MEDS: OXYCODONE HCL IR 5 MG TABLET PO PRN ×3 (05:50→20:14)
--- NOTE | 2019-04-17 07:45 | PDOC PROGRESS REPORT ---
Subjective Progress Note for:: 04/17/19 Reason For Visit: LEFT FEMORAL FRACTURE 58-year-old white female now postop day 2 status post ORIF of a left distal femur fracture. Uneventful postoperative course. Limited progress with physical therapy. Physical Exam Vital Signs: Temp Pulse Resp BP Pulse Ox 37.7 C 92 18 121/73 98 04/16/19 23:44 04/16/19 23:44 04/16/19 23:44 04/16/19 23:44 04/16/19 23:44 Intake & Output 04/16/19 04/17/19 04/18/19 06:59 06:59 06:59 Intake Total 2690 1382 Output Total 1305 Balance 1385 1382 Weight 108.1 kg 107.8 kg General appearance: PRESENT: no acute distress Respiratory exam: PRESENT: unlabored Cardiovascular exam: PRESENT: RRR Musculoskeletal exam: PRESENT: other - Compressive dressing removed from the left lower extremity today. Underlying OpSite dressings are clean dry and intact. Minimal pedal edema. Distal neurovascular examination is intact. Results Laboratory Results: 04/14/19 04:27 04/14/19 04:27 Impressions: Pelvis X-Ray 04/13/19 00:00 IMPRESSION: There are no findings to suggest an acute fracture within the pelvis. Knee X-Ray 04/13/19 04:28 IMPRESSION: There is an acute, spiral fracture through the distal left femur extending to the femoral condyles. Chest X-Ray 04/13/19 05:18 IMPRESSION: No acute cardiopulmonary process copyright 2011 [employer]- All Rights Reserved Femur X-Ray 04/15/19 00:00 IMPRESSION: ORIF left femur. Refer to operative note for further information. Fluoroscopy 04/15/19 00:00 IMPRESSION: ORIF left femur. Refer to operative note for further information. Status: Imported from PACS Assessment & Plan - Diagnosis (1) Left femoral shaft fracture Qualifiers: Encounter type: initial encounter Fracture type: closed Fracture morphology: spiral Fracture alignment: displaced Qualified Code(s): S72.342A - Displaced spiral fracture of shaft of left femur, initial encounter for closed fracture Is this a current diagnosis for this admission?: Yes Plan: Continue mobilization with physical therapy on a touchdown weightbearing restriction on the left lower extremity. Anticipate discharge home tomorrow with home health services and DME. - Time Time Spent with patient: 15-24 minutes Anticipated discharge: Home with Homehealth Within: within 24 hours
[2019-04-17] MEDS: ASPIRIN 81 MG TABLET, ENT COATED PO SCH (09:26)
[2019-04-17] MEDS: ACETAMINOPHEN 325 MG TABLET PO PRN (20:18)
[2019-04-18] MEDS: OXYCODONE HCL IR 5 MG TABLET PO PRN ×2 (02:06→08:37)
[2019-04-18] MEDS: ENOXAPARIN SODIUM INJ 30 MG/0.3 ML DISP.SYRIN SUBCUT SCH (05:06)
--- NOTE | 2019-04-18 07:12 | PDOC DISCHARGE SUMMARY ---
Impression - Admit/DC Date/PCP Admission Date/Primary Care Provider: 04/13/19 06:37 RAUL BEASLEY MD Discharge Date: 04/18/19 - Discharge Diagnosis (1) Left femoral shaft fracture Is this a current diagnosis for this admission?: Yes - Additional Information Resuscitation Status: Full Code Discharge Diet: Regular Discharge Activity: Balance Activity w/Rest, No tub bath Referrals: MELISSA MORRIS MD [ACTIVE STAFF] - Home Medications: Albuterol Sulfate [Ventolin Hfa 8 gm Mdi] 2 puff IH Q6HP PRN 04/13/19 Amlodipine Besylate [Norvasc 5 mg Tablet] 5 mg PO Q12 04/13/19 Paroxetine HCl [Paxil] 10 mg PO QAM 04/13/19 Phentermine HCl [Adipex-P] 30 mg PO DAILY 04/13/19 Tiotropium Br/Olodaterol HCl [Stiolto Respimat Inhal [place]] 2 puff IH DAILY 04/13/19 History of Present Illiness History of Present Illness: 58-year-old white female who tripped and fell and sustained a left distal femur fracture. She is brought to the emergency room and admitted to the orthopedic service for fracture management. Hospital Course Hospital Course: Patient was admitted through the emergency room. She was subsequent taken to the operating him underwent an open reduction external fixation of a left distal femur fracture which was uncomplicated. She was returned to the floor in satisfactory condition and seen by physical therapy for touchdown weightbearing ambulation. She makes adequate progress with physical therapy and subsequently for discharge home. Physical Exam Vital Signs: Temp Pulse Resp BP Pulse Ox 37.1 C 89 18 125/81 100 04/17/19 23:38 04/17/19 23:38 04/17/19 23:38 04/17/19 23:38 04/17/19 23:38 Intake & Output 04/17/19 04/18/19 04/19/19 06:59 06:59 06:59 Intake Total 1382 676 Balance 1382 676 Weight 107.8 kg 106.2 kg General appearance: PRESENT: obese Head exam: PRESENT: normocephalic Respiratory exam: PRESENT: unlabored Cardiovascular exam: PRESENT: RRR Pulses: PRESENT: +1 pedal pulses bilateral GI/Abdominal exam: PRESENT: soft Rectal exam: PRESENT: deferred Musculoskeletal exam: PRESENT: other - Left lower extremity OpSite dressings are clean dry and intact. Leg lengths are equal. Minimal pedal edema. Distal neurovascular examination is intact. Results Laboratory Results: WBC 10.0 10^3/uL (4.0-10.5) 04/14/19 04:27 RBC 3.64 10^6/uL (3.72-5.28) L 04/14/19 04:27 Hgb 12.5 g/dL (12.0-15.5) 04/14/19 04:27 Hct 35.9 % (36.0-47.0) L 04/14/19 04:27 MCV 99 fl (80-97) H 04/14/19 04:27 MCH 34.3 pg (27.0-33.4) H 04/14/19 04:27 MCHC 34.7 g/dL (32.0-36.0) 04/14/19 04:27 RDW 14.2 % (11.5-14.0) H 04/14/19 04:27 Plt Count 125 10^3/uL (150-450) L 04/14/19 04:27 Lymph % (Auto) 28.1 % (13-45) 04/14/19 04:27 Mchenry % (Auto) 8.0 % (3-13) 04/14/19 04:27 Eos % (Auto) 1.0 % (0-6) 04/14/19 04:27 Baso % (Auto) 0.4 % (0-2) 04/14/19 04:27 Absolute Neuts (auto) 6.2 10^3/uL (1.7-8.2) 04/14/19 04:27 Absolute Lymphs (auto) 2.8 10^3/uL (0.5-4.7) 04/14/19 04:27 Absolute Monos (auto) 0.8 10^3/uL (0.1-1.4) 04/14/19 04:27 Absolute Eos (auto) 0.1 10^3/uL (0.0-0.6) 04/14/19 04:27 Absolute Basos (auto) 0.0 10^3/uL (0.0-0.2) 04/14/19 04:27 Seg Neutrophils % 62.5 % (42-78) 04/14/19 04:27 PT 13.9 SEC (11.4-15.4) 04/14/19 04:27 INR 1.07 04/14/19 04:27 APTT 31.7 SEC (23.5-35.8) 04/14/19 04:27 Sodium 138.5 mmol/L (137-145) 04/14/19 04:27 Potassium 4.0 mmol/L (3.6-5.0) 04/14/19 04:27 Chloride 105 mmol/L (98-107) 04/14/19 04:27 Carbon Dioxide 27 mmol/L (22-30) 04/14/19 04:27 Anion Gap 7 (5-19) 04/14/19 04:27 BUN 13 mg/dL (7-20) 04/14/19 04:27 Creatinine 0.42 mg/dL (0.52-1.25) L 04/14/19 04:27 Est GFR ( Amer) > 60 (>60) 04/14/19 04:27 Est GFR (MDRD) Non-Af > 60 (>60) 04/14/19 04:27 Glucose 105 mg/dL (75-110) 04/14/19 04:27 Calcium 8.6 mg/dL (8.4-10.2) 04/14/19 04:27 Total Bilirubin 0.4 mg/dL (0.2-1.3) 04/13/19 05:30 Direct Bilirubin 0.2 mg/dL (0.0-0.4) 04/13/19 05:30 Neonat Total Bilirubin Not Reportable 04/13/19 05:30 Neonat Direct Bilirubin Not Reportable 04/13/19 05:30 Neonat Indirect Bili Not Reportable 04/13/19 05:30 AST 81 U/L (14-36) H 04/13/19 05:30 ALT 65 U/L (<35) H 04/13/19 05:30 Alkaline Phosphatase 68 U/L (38-126) 04/13/19 05:30 Total Protein 7.4 g/dL (6.3-8.2) 04/13/19 05:30 Albumin 4.2 g/dL (3.5-5.0) 04/13/19 05:30 Urine Color YELLOW 04/13/19 07:20 Urine Appearance CLEAR 04/13/19 07:20 Urine pH 5.0 (5.0-9.0) 04/13/19 07:20 Ur Specific [place] 1.010 04/13/19 07:20 Urine Protein NEGATIVE mg/dL (NEGATIVE) 04/13/19 07:20 Urine Glucose (UA) NEGATIVE mg/dL (NEGATIVE) 04/13/19 07:20 Urine Ketones NEGATIVE mg/dL (NEGATIVE) 04/13/19 07:20 Urine Blood NEGATIVE (NEGATIVE) 04/13/19 07:20 Urine Nitrite NEGATIVE (NEGATIVE) 04/13/19 07:20 Urine Bilirubin NEGATIVE (NEGATIVE) 04/13/19 07:20 Urine Urobilinogen NEGATIVE mg/dL (<2.0) 04/13/19 07:20 Ur Leukocyte Esterase NEGATIVE (NEGATIVE) 04/13/19 07:20 Urine WBC (Auto) 0 /HPF 04/13/19 07:20 Urine RBC (Auto) 0 /HPF 04/13/19 07:20 U Hyaline Cast (Auto) 1 /LPF 04/13/19 07:20 Squamous Epi Cells Auto <1 /HPF 04/13/19 07:20 Urine Mucus (Auto) RARE /LPF 04/13/19 07:20 Urine Ascorbic Acid NEGATIVE (NEGATIVE) 04/13/19 07:20 Serum Alcohol 232 mg/dL (NONE DETECTED) 04/13/19 05:30 Blood Type O POSITIVE 04/14/19 04:27 Antibody Screen NEGATIVE 04/14/19 04:27 Impressions: Femur X-Ray 04/13/19 00:00 IMPRESSION: There is an acute fracture involving the mid to distal left femur. Pelvis X-Ray 04/13/19 00:00 IMPRESSION: There are no findings to suggest an acute fracture within the pelvis. Knee X-Ray 04/13/19 04:28 IMPRESSION: There is an acute, spiral fracture through the distal left femur extending to the femoral condyles. Chest X-Ray 04/13/19 05:18 IMPRESSION: No acute cardiopulmonary process copyright 2011 [employer]- All Rights Reserved Femur X-Ray 04/15/19 00:00 IMPRESSION: ORIF left femur. Refer to operative note for further information. Fluoroscopy 04/15/19 00:00 IMPRESSION: ORIF left femur. Refer to operative note for further information. Plan Plan of Treatment: Discharge home with home health services and DME on a touchdown weightbearing restriction on the left lower extremity. Follow-up with Dr. Morris and [facility] for surgery in 2 weeks for staple removal. Stroke Is this a Stroke Patient?: No Stroke Pt being discharged on Anti-thrombolytic therapy?: Yes Acute Heart Failure - Is this a Heart Failure Patient?: No
[2019-04-18 08:39] VITALS: BP 115/76
== END 2019-04-18 10:55 | disposition home health service (06) | DRG 481 ==
LOC: ER 04:10 → EH 06:37 → 5 15:41
PROVIDERS: ADMIT Orthopaedic Surgery; ATTEND Orthopaedic Surgery
PROC: 0QS906Z Reposition Left Femoral Shaft with Intramedullary Internal Fixation Device, Open Approach (ICD-10-PCS; principal; 2019-04-15 07:30)
DX: S72.452A Displaced supracondylar fracture without intracondylar extension of lower end of left femur, initial encounter for closed fracture (principal); F10.99 Alcohol use, unspecified with unspecified alcohol-induced disorder; W17.2XXA Fall into hole, initial encounter; Y90.7 Blood alcohol level of 200-239 mg/100 ml; Y92.007 Garden or yard of unspecified non-institutional (private) residence as the place of occurrence of the external cause; Z96.642 Presence of left artificial hip joint; I10 Essential (primary) hypertension; M19.90 Unspecified osteoarthritis, unspecified site
CPT/HCPCS: 01230; 36415; 71045; 72170; 80048; 80053; 80307; 81001; 85025; 85610; 85730; 86850; 86900; 86901; 93005; 93010; 99285; J0330; J0690; J1650; J1885; J2250; J2270; J2370; J2405; J2704; J2710; J3010; J3490; J7060